=== PATIENT | male | born 1965 | race African-American/Black ===

== ENCOUNTER 2016-06-02 12:04 | Emergency (ER) | payer MEDICAID, OTHER ==
[~2016-06-02] VITALS: Ht 185.4 cm; Wt 91.0 kg
[~2016-06-02 12:04] MED LIST: [UNRECOGNIZED DRUG - REMARK]
[2016-06-02 12:11] VITALS: BP 153/98
[2016-06-02 14:53] LABS: CLARITY URINE CLEAR (CLEAR); COLOR URINE YELLOW (YELLOW); GLUCOSE URINE NEGATIVE (NEGATIVE); KETONES URINE NEGATIVE (NEGATIVE); LEUKOCYTE ESTERASE URINE NEGATIVE (NEGATIVE); NITRITE URINE NEGATIVE (NEGATIVE); OCCULT BLOOD URINE NEGATIVE (NEGATIVE); PH URINE 5.5 (4.5-8.0); PROTEIN URINE NEGATIVE (NEGATIVE); UROBILINOGEN URINE 0.2 E.U./dL (0.2-1.0)
[2016-06-02] MEDS ORDERED: CEFTRIAXONE SODIUM 250 MG/VIAL IM ONE (15:15)
[2016-06-02] MEDS ORDERED: AZITHROMYCIN 500 MG TABLET PO ONE (15:15)
[2016-06-02] MEDS ORDERED: LIDOCAINE HCL 1% 20ML VIAL (Pyxis) INJ MC ONE (15:15)
== END 2016-06-02 15:57 | disposition home or self-care (01) ==
LOC: ER 13:48
DX: S39.012A Strain of muscle, fascia and tendon of lower back, initial encounter (principal); R35.0 Frequency of micturition; Y93.89 Activity, other specified; Y99.9 Unspecified external cause status; Y92.89 Other specified places as the place of occurrence of the external cause
CPT/HCPCS: 81003; 96372; 99283; J0696; J3490

== ENCOUNTER 2016-07-17 11:48 | Emergency (ER) | payer OTHER ==
[~2016-07-17] VITALS: Ht 185.4 cm; Wt 98.0 kg
[2016-07-17 12:30] VITALS: BP 139/100
[2016-07-17 15:00] LABS: CLARITY URINE CLEAR (CLEAR); COLOR URINE YELLOW (YELLOW); GLUCOSE URINE NEGATIVE (NEGATIVE); KETONES URINE NEGATIVE (NEGATIVE); LEUKOCYTE ESTERASE URINE NEGATIVE (NEGATIVE); NITRITE URINE NEGATIVE (NEGATIVE); OCCULT BLOOD URINE NEGATIVE (NEGATIVE); PROTEIN URINE NEGATIVE (NEGATIVE); UROBILINOGEN URINE 0.2 E.U./dL (0.2-1.0)
[2016-07-17] MEDS ORDERED: CEFTRIAXONE SODIUM 1 G/VIAL IM ONE (15:30)
[2016-07-17] MEDS ORDERED: AZITHROMYCIN 500 MG TABLET PO ONE (15:30)
[2016-07-17] MEDS ORDERED: LIDOCAINE HCL 1% 20ML VIAL (Pyxis) INJ MC ONE (15:30)
== END 2016-07-17 16:02 | disposition home or self-care (01) ==
LOC: ER 14:31
DX: R35.8 Other polyuria (principal); I10 Essential (primary) hypertension
CPT/HCPCS: 81003; 82962; 96372; 99284; J0696; J3490; Z7610

== ENCOUNTER 2016-08-08 10:08 | Emergency (ER) | payer MEDICAID, OTHER ==
[~2016-08-08] VITALS: Ht 185.4 cm; Wt 96.5 kg
[2016-08-08] MEDS ORDERED: KETOROLAC 60MG/2ML VIAL IM ONE (13:00)
[2016-08-08] MEDS ORDERED: HYDROCODONE/ACETAMINOPHEN 5/325MG TABLET PO ONE (14:15)
[2016-08-08 14:57] VITALS: BP 120/81
== END 2016-08-08 15:09 | disposition home or self-care (01) ==
LOC: ER 12:51
DX: S62.001A Unspecified fracture of navicular [scaphoid] bone of right wrist, initial encounter for closed fracture (principal); M79.641 Pain in right hand; R51 Headache; W01.0XXA Fall on same level from slipping, tripping and stumbling without subsequent striking against object, initial encounter; Y93.89 Activity, other specified; Y92.89 Other specified places as the place of occurrence of the external cause; R03.0 Elevated blood-pressure reading, without diagnosis of hypertension; M18.9 Osteoarthritis of first carpometacarpal joint, unspecified; M10.9 Gout, unspecified
CPT/HCPCS: 29125; 73110; 73130; 96372; 99284; J1885; Z7610

== ENCOUNTER 2017-04-27 00:33 | Emergency (ER) | payer MEDICAID, OTHER ==
[~2017-04-27] VITALS: Ht 185.4 cm; Wt 97.5 kg
[2017-04-27] MEDS ORDERED: CYCLOBENZAPRINE 10MG TABLET PO ONE (01:15)
[2017-04-27] MEDS ORDERED: KETOROLAC 60MG/2ML VIAL IM ONE (01:15)
[2017-04-27 01:18] VITALS: BP 133/85
== END 2017-04-27 05:15 | disposition home or self-care (01) ==
LOC: ER 00:33
DX: M25.511 Pain in right shoulder (principal); M54.6 Pain in thoracic spine; R20.0 Anesthesia of skin
CPT/HCPCS: 72125; 96372; 99284; J1885

== ENCOUNTER 2019-09-11 12:11 | Emergency (ER) | payer MEDICAID ==
[~2019-09-11] VITALS: Ht 185.4 cm; Wt 100.0 kg
[2019-09-11] MEDS ORDERED: OXYCODONE HCL/ACETAMINOPHEN 5/325MG TABLET PO ONE (13:30)
[2019-09-11 14:09] VITALS: BP 151/101
== END 2019-09-11 14:09 | disposition home or self-care (01) ==
LOC: ER 12:11
DX: M19.90 Unspecified osteoarthritis, unspecified site (principal)
CPT/HCPCS: 73110; 73130; 99284

== ENCOUNTER 2019-12-23 05:56 | Emergency (ER) | payer MEDICAID ==
[~2019-12-23] VITALS: Ht 185.4 cm; Wt 99.0 kg
[2019-12-23 07:57] LABS: CLARITY URINE CLEAR (CLEAR); COLOR URINE YELLOW (YELLOW); KETONES URINE NEGATIVE (NEGATIVE); LEUKOCYTE ESTERASE URINE NEGATIVE (NEGATIVE); NITRITE URINE NEGATIVE (NEGATIVE); OCCULT BLOOD URINE NEGATIVE (NEGATIVE); PH URINE 5.5 (4.5-8.0); PROTEIN URINE NEGATIVE (NEGATIVE); SPECIFIC GRAVITY URINE 1.011 (1.005-1.030); UROBILINOGEN URINE 0.2 E.U./dL (0.2-1.0)
[2019-12-23 08:25] LABS: BASOPHILS % 0.8 % (0.0-2.0); EOSINOPHILS % 4.9 % (0.0-5.0); HEMATOCRIT. 43.3 % (42.0-52.0); HEMOGLOBIN. 14.6 g/dL (14.0-18.0); LYMPHOCYTES % 49.5 % (20.0-50.0); MONOCYTES % 8.9 % (2.0-8.0); NEUTROPHILS % 35.9 % (40.0-76.0); PLATELET 223 x1000/uL (130-400); RED BLOOD CELL COUNT 4.71 mill/uL (4.7-6.1); RED CELL DISTRIBUTION WIDTH 13.5 % (11.6-14.6)
[2019-12-23 08:33] LABS: CHLORIDE 106 mEq/L (98-107)
[2019-12-23 08:34] LABS: INR 1.1; PROTHROMBIN TIME 11.9 sec (9.6-11.0)
[2019-12-23] MEDS ORDERED: IBUPROFEN 600MG TABLET PO ONE (09:15)
[2019-12-23] MEDS ORDERED: ACETAMINOPHEN 325MG TABLET PO ONE (09:15)
[2019-12-23 10:09] VITALS: BP 139/89
== END 2019-12-23 10:11 | disposition home or self-care (01) ==
LOC: ER 06:05
DX: R10.30 Lower abdominal pain, unspecified (principal); I10 Essential (primary) hypertension; Z98.890 Other specified postprocedural states
CPT/HCPCS: 36415; 80053; 81003; 85025; 85610; 93005; 99284; Z7610

== ENCOUNTER 2021-10-21 22:43 | Emergency (ER) | payer MEDICAID, OTHER ==
[~2021-10-21] VITALS: Ht 185.4 cm; Wt 99.0 kg
[2021-10-21] MEDS ORDERED: HYDROCODONE/ACETAMINOPHEN 10/325MG TABLET PO ONE (23:45)
[2021-10-21] MEDS ORDERED: KETOROLAC 60MG/2ML VIAL IM ONE (23:45)
[2021-10-22] MEDS ORDERED: COLC0.6C3 MT (00:10)
[2021-10-22] MEDS ORDERED: INDO75CA66 MT (00:10)
[2021-10-22 00:18] VITALS: BP 108/78
== END 2021-10-22 00:19 | disposition home or self-care (01) ==
LOC: ER 22:43
DX: M25.571 Pain in right ankle and joints of right foot (principal); M10.9 Gout, unspecified; M77.9 Enthesopathy, unspecified; I10 Essential (primary) hypertension; Z98.890 Other specified postprocedural states
CPT/HCPCS: 73610; 96372; 99283; J1885

== ENCOUNTER 2023-07-29 01:06 | Emergency (ER) | payer OTHER ==
[~2023-07-29] VITALS: Ht 177.8 cm; Wt 94.0 kg
[~2023-07-29 01:06] MED LIST changes: +COLC0.6C3 MT; +INDO75CA66 MT; -[UNRECOGNIZED DRUG - REMARK]
[2023-07-29 01:49] VITALS: BP 179/105; PULSE 81; RESP 20; TEMP 98.2
[2023-07-29] MEDS ORDERED: COLC0.6C3 MT (02:59)
[2023-07-29] MEDS ORDERED: INDO75CA66 MT (02:59)
== END 2023-07-29 03:21 | disposition home or self-care (01) ==
LOC: ER 01:06
DX: M10.9 Gout, unspecified (principal); I10 Essential (primary) hypertension; Z98.890 Other specified postprocedural states
CPT/HCPCS: 99283

== ENCOUNTER 2024-01-08 02:03 | Emergency (ER) | payer OTHER ==
[~2024-01-08] VITALS: Ht 185.4 cm; Wt 99.0 kg
[2024-01-08 03:14] VITALS: BP 140/93; PULSE 98; TEMP 98.4; O2SAT 100
[2024-01-08] MEDS ORDERED: COLC0.6C3 MT (03:24)
[2024-01-08] MEDS ORDERED: INDO75CA66 MT (03:24)
[2024-01-08] MEDS: KETOROLAC 30MG/ML VIAL IM ONE (04:30)
[2024-01-08 05:00] VITALS: RESP 18
== END 2024-01-08 05:05 | disposition home or self-care (01) ==
LOC: ER 02:03
DX: M10.9 Gout, unspecified (principal); I10 Essential (primary) hypertension; Z98.890 Other specified postprocedural states; Z79.899 Other long term (current) drug therapy
CPT/HCPCS: 96372; 99283; J1885; Z7610

== ENCOUNTER 2024-02-22 07:13 | Emergency (ER) | payer OTHER ==
[~2024-02-22] VITALS: Ht 185.4 cm; Wt 97.1 kg
[2024-02-22 07:15] VITALS: O2SAT 100
[2024-02-22 07:25] VITALS: O2SAT 100
[2024-02-22 11:05] VITALS: BP 116/81; PULSE 98; RESP 16; TEMP 98.7
[2024-02-22] MEDS: KETOROLAC 15MG/ML VIAL IM ONE (11:05)
[2024-02-22] MEDS: ACETAMINOPHEN 325MG TABLET PO ONE (11:05)
[2024-02-22] MEDS ORDERED: CEPH500C2 MT (12:04)
== END 2024-02-22 12:29 | disposition home or self-care (01) ==
LOC: ER 07:22
DX: L03.032 Cellulitis of left toe (principal); I10 Essential (primary) hypertension; M10.9 Gout, unspecified; M20.12 Hallux valgus (acquired), left foot; Z98.890 Other specified postprocedural states
CPT/HCPCS: 93971; 73560; 73630; 96372; 99285; J1885; Z7610